=== PATIENT | female | born 1955 | race Caucasian/White ===

== ENCOUNTER → 2020-03-04 13:16 | Outpatient (BNVA) | payer OTHER, SELFPAY | PROVIDERS: PCP Internal Medicine; Referring Provider Internal Medicine; Visit Provider Surgery | DX: K91.2 Postsurgical malabsorption, not elsewhere classified (principal); I10 Essential (primary) hypertension; Z79.899 Other long term (current) drug therapy; Z87.891 Personal history of nicotine dependence; Z98.84 Bariatric surgery status | CPT/HCPCS: 99214 ==

== ENCOUNTER 2020-03-10 11:30 | Outpatient (REF) | payer OTHER, SELFPAY ==
[2020-03-10 12:21] LABS: MANUAL DIFF FLAG NO
[2020-03-10 12:30] LABS: Basophils Percent Auto 0.6 % (0-2); Eosinophils Absolute Auto 0.1 X10*3/uL (0.0-0.4); Eosinophils Percent Auto 1.7 % (0-4); Hematocrit 39.9 % (37-47); Hemoglobin 12.8 g/dl (12.0-16.0); Imm Gran Abs Auto 0.02 X10*3/uL (0.00-0.03); Imm Gran Pct Auto 0.4 % (0.0-0.4); Lymphocytes Absolute Auto 1.9 X10*3/uL (1.2-4.9); Lymphocytes Percent Auto 35.9 % (20-40); Mean Corpuscular HGB Conc 32.1 g/dl (31.0-35.0); Mean Corpuscular Hemoglobin 30.8 pg (27.0-33.0); Mean Corpuscular Volume 95.9 fL (80-98); Mean Platelet Volume 10.2 fL (9.4-12.3); Monocytes Absolute Auto 0.5 X10*3/uL (0.1-1.2); Monocytes Percent Auto 9.5 % (2-11); Neutrophils Absolute Auto 2.7 X10*3/uL (2.0-8.3); Neutrophils Percent Auto 51.9 % (45-73); Platelet Count 186 X10*3/uL (160-400); Red Blood Count 4.16 X10*6/uL (4.20-5.50); White Blood Count 5.2 X10*3/uL (4.8-10.8)
[2020-03-10 13:03] LABS: Alanine Aminotransferase 17 U/L (0-31); Albumin Level 3.8 g/dL (3.5-5.0); Alkaline Phosphatase 63 U/L (39-117); Anion Gap 12 (12-20); Aspartate Amino Transferase 23 U/L (5-31); Bilirubin Total 0.8 mg/dL (0.0-1.0); Blood Urea Nitrogen 17 mg/dL (9-16); Calcium 9.1 mg/dL (8.4-10.2); Carbon Dioxide 30 mmol/L (22-29); Chloride 103 mmol/L (96-108); Cholesterol 171 mg/dL; Estimated Glomerular Filt Rate > 60; Glucose Fasting 84 mg/dL (60-99); HDL Cholesterol 82 mg/dL; Iron 123 mcg/dL (30-160); LDL Cholesterol Calculated 76 mg/dl; Percent Iron Saturation 48 % (15-50); Sodium 141 mmol/L (135-145); Total Iron Binding Capacity 257 mcg/dL (228-428); Total Protein 6.7 g/dL (6.5-8.0); Triglycerides 65 mg/dL; Unsaturated Iron Binding 134 ug/dL
[2020-03-10 13:23] LABS: Vitamin D 25-OH Total 31.2 ng/mL (>30)
[2020-03-10 13:58] LABS: Vitamin B12 738 pg/mL (200-900)
[2020-03-14 04:12] LABS: Zinc 55 mcg/dL (60-130)
[2020-03-14 18:52] LABS: Vitamin A 30 mcg/dL (38-98)
[2020-03-17 13:32] LABS: Vitamin B1 12 nmol/L (8-30)
== END 2020-03-10 11:31 | disposition home or self-care (01) ==
LOC: HO.LAB 11:30
PROVIDERS: PCP Internal Medicine; Visit Provider Surgery
DX: Z01.818 Encounter for other preprocedural examination (principal); K91.2 Postsurgical malabsorption, not elsewhere classified
CPT/HCPCS: 36415; 80053; 80061; 82306; 82607; 83540; 84425; 84443; 84590; 84630; 85025

== ENCOUNTER → 2020-07-29 08:29 | Outpatient (BNVA) | payer OTHER, SELFPAY | PROVIDERS: PCP Internal Medicine; Visit Provider Physician Assistant ==